=== PATIENT | male | born 1990 | race Caucasian/White ===

== ENCOUNTER 2016-11-18 20:36 | Emergency (ER) | payer BC ==
[2016-11-18 20:58] LABS: BASOPHILS 0.1 % (0.0-2.0); EOSINOPHILS 2.1 % (0-7); HEMATOCRIT 47.1 % (42.0-54.0); IMMATURE GRANULOCYTES 0.3 % (0-5); LYMPHOCYTES 12.4 % (15-50); MCV 91.3 fL (80.0-100.0); MEAN PLATELET VOLUME 10.2 fL (7.4-10.4); MONOCYTES 7.1 % (2-11); PLATELET COUNT 220 10x3/uL (130-400); RBC 5.16 10x6/uL (4.20-6.10); RDW 13.1 % (11.5-14.5); WBC 19.5 10x3/uL (4.8-10.8)
[2016-11-18 21:28] LABS: ALBUMIN 4.3 g/dL (3.4-5.0); ALKALINE PHOSPHATASE 72 U/L (46-116); ALT (SGPT) 50 U/L (10-68); AMYLASE - SERUM 36 U/L (25-115); BILIRUBIN - TOTAL 0.48 mg/dL (0.2-1.3); CALC OSMOLALITY 282 mosm/kg (275-300); CALCIUM 9.3 mg/dL (8.5-10.1); CARBON DIOXIDE 24.5 mmol/L (21.0-32.0); CHLORIDE - SERUM 101 mmol/L (98-107); CREATININE - SERUM 1.1 mg/dL (0.6-1.3); GLUCOSE 124 mg/dL (74-106); LIPASE 91 U/L (73-393); POTASSIUM - SERUM 4.3 mmol/L (3.5-5.1); PROTEIN - SERUM 7.7 g/dL (6.4-8.2); SODIUM 140 mmol/L (136-145); UREA NITROGEN 20 mg/dL (7-18); eGFR NON AFRICAN AMERICAN 87 mL/min (90-120)
[2016-12-13] MEDS ORDERED: ZYLOPRIM100 MG PO (13:49)
[2016-12-13] MEDS ORDERED: NORVASC5 MG PO (13:50)
[2016-12-13] MEDS ORDERED: CATAPRES0.1 MG PO (13:50)
[2016-12-16 09:26] VITALS: BMI 39.6
== END 2016-11-19 00:15 | disposition home or self-care (01) ==
LOC: D.ER 20:36
PROVIDERS: Emergency Medicine
DX: K80.50 Calculus of bile duct without cholangitis or cholecystitis without obstruction (principal); K80.20 Calculus of gallbladder without cholecystitis without obstruction; F17.200 Nicotine dependence, unspecified, uncomplicated

== ENCOUNTER → 2016-12-02 10:01 | Outpatient (CLI) | payer BC ==
[~2016-12-02 10:01] MED LIST: CATAPRES0.1 MG PO; CYCLOBENZAPRINE10 MG PO; NORCO 7.5/325 T1 TA1 PO; NORVASC5 MG PO; PAXIL20 MG PO; ZYLOPRIM100 MG PO
[2016-12-16 09:26] VITALS: BMI 39.6
== END | disposition home or self-care (01) ==
LOC: D.US 10:01
DX: R10.11 Right upper quadrant pain (principal); R11.2 Nausea with vomiting, unspecified

== ENCOUNTER → 2016-12-04 12:15 | Outpatient (CLI) | payer BC ==
[2016-12-16 09:26] VITALS: BMI 39.6
== END | disposition home or self-care (01) ==
LOC: D.NM 12:15
DX: R10.11 Right upper quadrant pain (principal)

== ENCOUNTER 2016-12-16 07:15 | Day surgery (SDC) | payer BC ==
[2016-12-13 14:45] LABS: HEMATOCRIT 46.5 % (42.0-54.0); MCH 31.1 pg (26.0-34.0); MCHC 34.4 g/dL (31.0-37.0); MCV 90.5 fL (80.0-100.0); RBC 5.14 10x6/uL (4.20-6.10); RDW 12.6 % (11.5-14.5); WBC 10.2 10x3/uL (4.8-10.8)
[~2016-12-16] VITALS: Ht 188 cm; Wt 139.7 kg
[~2016-12-16 07:15] MED LIST changes: -CYCLOBENZAPRINE10 MG PO; -NORCO 7.5/325 T1 TA1 PO; -PAXIL20 MG PO
[2016-12-16] MEDS ORDERED: CYCLOBENZAPRINE10 MG PO (09:16)
[2016-12-16] MEDS ORDERED: PAXIL20 MG PO (09:17)
[2016-12-16 09:26] VITALS: BP 152/98; Ht 188 cm; Wt 139.7 kg
--- NOTE | 2016-12-16 09:50 | NUR ---
WNEN ASKED, PATIENT REPORTS FEELING LESS ANXIOUS AND MORE CALM. PATIENT CONTINUES TO BE AWAKE AND ALERT, FAMILY AT BEDSIDE
[2016-12-16] MEDS ORDERED: NORCO 7.5/325 T1 TA1 PO (12:00)
--- NOTE | 2016-12-16 12:24 | NUR ---
PRE OP BP 150/96
--- NOTE | 2016-12-16 14:37 | NUR ---
1400--REPORT RECIEVED FROM BEN QUINTEROS RN. YAYA GONZALEZ [id number]--PT VOIDS, IV DC'D. YAYA GONZALEZ
--- NOTE | 2016-12-16 15:09 | NUR ---
1505--DISCHARGE INSTRUCTIONS GIVEN, PT VERBALIZES UNDERSTANDING. PT OFF UNIT VIA [facility]. YAYA GONZALEZ
--- NOTE | 2016-12-17 08:08 | OP ---
PATIENT NAME: TESSIE FOSTER MEDICAL RECORD: [id number] :89 LOCATION:[facility] ADMISSION DATE: SURGEON: EVELIN BOX MD DATE OF OPERATION: 12/16/2016 SURGEON: Evelin Box MD PREOPERATIVE DIAGNOSES: 1. Right upper quadrant pain 2. Nausea and vomiting. 3. Biliary dyskinesia. POSTOPERATIVE DIAGNOSES: 1. Right upper quadrant pain. 2. Nausea and vomiting. 3. Biliary dyskinesia. PROCEDURE PERFORMED: Laparoscopic cholecystectomy. ANESTHESIA: General. COMPLICATIONS: None. SPECIMENS: Gallbladder. Case is clean contaminated. ESTIMATED BLOOD LOSS: 30 cc. OPERATIVE COURSE: After consent was obtained, the patient was taken to the operating room and placed in the supine position on the operating table. Next, general anesthesia was given via endotracheal intubation after timeout was performed then confirmed the correct patient and procedure. The abdomen was prepped and draped in typical sterile fashion. Local anesthetic was injected just above the umbilicus. A stab incision was made 11-blade scalpel. Using a 5-mm bladeless optical trocar, the abdomen was entered under direct laparoscopic vision. Adequate pneumoperitoneum was achieved. The abdominal cavity was inspected. No evidence of bowel injury. No evidence of bleeding. At this time, the patient was placed in the steep reverse Trendelenburg position. All remaining trocars were placed after the administration of local anesthetic, two 5-mm trocars in the right upper quadrant and 11-mm trocar in the subxiphoid position. The fundus of the gallbladder was grasped and retracted cephalad. The infundibulum was grasped and retracted laterally. The peritoneum was incised using electrocautery. Blunt dissection was then performed with a [place] dissector and the suction iv therapy nurse until the critical view was obtained. The cystic artery to medial, cystic duct to lateral, liver in a posterior window, 3 clips were placed in the proximal cystic duct, 1 clip distally and the cystic duct was transected with laparoscopic Metzenbaum scissors. The cystic artery was able to be swept laterally. Dissection continued along the liver bed using electrocautery until the gallbladder was free from the liver bed. It was then grasped with the tenaculum and removed through the 11-mm trocar and sent for permanent pathology. The operative site was then copiously irrigated and suctioned. Careful attention was paid to hemostasis, which was obtained in the liver bed using electrocautery. The operative site was inspected. There were [address] in the proximal OPERATIVE REPORT [id number] TESSIE FOSTER cystic duct. The cystic artery was still intact. There was no evidence of bleeding, no evidence of bile leakage. At this time, the operative field was again copiously irrigated and suctioned. The remaining portion of the abdomen was inspected. There was no evidence of bowel injury. No evidence of bleeding. At this time, all instruments were removed. The abdomen was desufflated. Trocars removed. Skin was closed with 4-0 Monocryl, Mastisol and Steri-Strips. At the end of the case, all needle and instrument counts were correct. No complications occurred. The patient extubated and transferred to the PACU in stable condition. TRANSINT:[id number] Voice Confirmation ID: [id number] DOCUMENT ID: [id number] EVELIN BOX MD at 0808 CC: [id number] DICTATION DATE: 12/16/16 1159 [employer] MACH[employer] TENDER: 12/16/[address] [facility] 12/16/16 [id number] [place] [address]
== END 2016-12-16 15:05 | disposition home or self-care (01) ==
LOC: D.PAN 07:15 → D.OPS 10:00 → D.PAN 15:05
PROVIDERS: Anesthesiology
DX: K82.8 Other specified diseases of gallbladder (principal)

== ENCOUNTER 2019-11-22 00:33 | Emergency (ER) | payer OTHER ==
[~2019-11-22] VITALS: Ht 188 cm; Wt 145.5 kg
[~2019-11-22 00:33] MED LIST changes: +CYCLOBENZAPRINE10 MG PO; +NORCO 7.5/325 T1 TA1 PO; +PAXIL20 MG PO
[2019-11-22 00:45] VITALS: Ht 188 cm; Wt 145.5 kg
[2019-11-22] MEDS ORDERED: COLCHICINE (00:47)
[2019-11-22] MEDS ORDERED: INDOCIN25 MG PO (01:06)
[2019-11-22] MEDS ORDERED: ULTRAM50 MG PO (01:06)
[2019-11-22] MEDS ORDERED: PREDNISONE20 MG PO (01:07)
[2019-11-22 01:30] VITALS: BP 134/80
== END 2019-11-22 01:30 | disposition home or self-care (01) ==
LOC: D.ER 00:33
DX: M10.071 Idiopathic gout, right ankle and foot (principal)